=== PATIENT | male | born 1955 | race Caucasian/White ===

== ENCOUNTER → 2018-01-05 | Outpatient (CLI) | payer OTHER ==
[~2018-01-05] MED LIST: FLEXERIL PO; IBUPROFEN200 M2 PO; NEXIUM 40 MG CA40 M1 PO; PREDNISONE 20 M20 M1 PO; ULTRAM 50MG TAB50 MG PO
--- NOTE | 2018-01-07 11:58 | PF ---
[address] [address] PULMONARY FUNCTION REPORT Name: PARESH TATE Room: [facility]#: [id number] Admission: 01/05/18 Attend Phys: Mandy Valdez Discharge: Date of : 55 Report #: [id number] THIS REPORT FOR: //name// CC: Mikael Stewart DATE OF SERVICE: 01/05/2018 REFERRING PHYSICIAN: Mikael Stewart MD TYPE OF STUDY: Pulmonary function test. SPIROMETRY: FEV1/FVC ratio 48% predicted. FEV1 after bronchodilator was 2.47 L at 72% of predicted with positive bronchodilator response. FVC was 4.64 L at 99% predicted. Total lung capacity was 91% predicted at 6.87 liters. The DLCO was 98% predicted. IMPRESSION: The above pulmonary function test demonstrates obstructive pulmonary defect of [id number]-jj-[id number] degree with positive bronchodilator response and normal DLCO and lung volumes. <ELECTRONICALLY SIGNED> By: Velasquez Bustamante MD 01/07/18 1158 [id number] [id number] Eduardo Viramontes MD /nt
== END ==
LOC: M.RAD 12-31 07:57
DX: J44.9 Chronic obstructive pulmonary disease, unspecified (principal); J84.9 Interstitial pulmonary disease, unspecified